=== PATIENT | male | born 1980 | race Caucasian/White ===

== ENCOUNTER 2019-01-12 09:05 | Emergency (ER) | payer MEDICAID, SELFPAY ==
[2019-01-12 09:09] VITALS: BP 152/91; PULSE 70; RESP 18; TEMP 36.6; O2SAT 97
--- NOTE | 2019-01-12 09:52 | W.ED.GENAD ---
Discharge Plan Disposition Patient Disposition: HOME Discharge Details Chief Complaint: Nk/Back Pain Clinical Impression: Acute right-sided low back pain Primary Care Provider: None,None ED Provider: Declan Haines Home Meds and New Rx's Prescriptions: New lidocaine 5 % adhesive patch,medicated 1 patch TP DAILY Qty: 15 RF: 0 Discharge Instructions Instructions: Acute Low Back Pain (ED) Additional Instructions: Avoid all activities that worsen pain. Please take ibuprofen over the counter. Take 600mg by mouth every 6 hours as needed for pain. Please take acetaminophen (tylenol) - 650mg every 6 hours by mouth as needed for pain. Please contact your primary care physician to arrange follow-up. Return to the ER for any worsening or new concerning symptoms including worsening pain, worsening numbness, weakness, bowel or bladder dysfunction. Referrals: Morgan Solis MD [ [facility] STAFF PHYSICIAN] - Medical Decision Making 38-year-old male here with right low back pain radiating into right buttock and hip with paresthesias of the right anterior lower leg over L4 distribution. Tender palpation right lower lumbar paraspinal. Suspect disc herniation and nerve root compression versus lumbar paraspinal spasm. Plan to treat with ibuprofen, Tylenol and lidocaine patch and have him follow-up with his primary care physician. Usual and customary discharge instructions were provided. Patient understands importance of timely follow-up and that he should return immediately for any worsening or new concerning symptoms. HPI General Mode of arrival: ambulatory. Date/Time Provider Initiated Documentation: 01/12/19 09:13. Limitations to Documentation: no limitations. Information obtained by: patient. HPI Narrative: 38-year-old male presents with chief complaint of back pain. Patient notes right low back pain that started 2 days ago and has persisted. Patient does not recall any specific trauma. He notes he has been working on a roof and deck recently and doing heavy lifting. Pain is described as a soreness and localized to his right low back and radiates into his right hip and also some discomfort and paresthesias right anterior cassidy. Pain is worse with prolonged standing. No associated weakness. No bowel or bladder dysfunction. No fever or chills. No rash. Related Data Home Medications Medication Instructions Recorded Confirmed lidocaine 1 patch TP DAILY #15 each 01/12/19 Previous Rx's Medication Instructions Recorded lidocaine 1 patch TP DAILY #15 each 01/12/19 Allergies Allergy/AdvReac Type Severity Reaction Status Date / Time carrot Allergy Mild Itching Unverified 01/12/19 09:22 General Stated Complaint: Nk/Back Pain LEXY: 3 Review of Systems Constitutional Denies fever(s) Gastrointestinal Denies abdominal pain Genitourinary Reports as per HPI Musculoskeletal Reports as per HPI Integumentary/Breasts Reports as per HPI [facility] Social History Smoking/Tobacco Use Status: Former Tobacco Use Alcohol Intake: current Alcohol Intake frequency: a few times a week Alcohol type: beer Drug use: Never Substance use type: former substance user and marijuana Do you feel safe at home: Yes Do you feel safe in your relationship?: Yes Exam Const General: cooperative and no acute distress HENMT Mouth: moist mucous membranes Eyes Conjunctivae: normal conjunctivae Sclera: normal sclerae Neck Neck: supple Resp Auscultation: clear to auscultation bilaterally, no rales, no rhonchi and no wheezes Cardio Rate: regular rate Rhythm: regular rhythm Back/Spine/Pelvis Back: No erythema and No warmth Thoracic/Lumbar Spine: paraspinal tenderness (Low lumbar on right), No thoracic spinal tenderness and No lumbar spinal tenderness Pelvis: no pain with lateral compression Skin General skin exam: no rashes or lesions noted Neuro General: alert, awake, oriented x3 and tone normal Cognition: normal cognition Speech: speech normal Sensory Exam: lower extremity (paresthesia tingling right anterior lower leg over L4 distribution) Extrem General: no edema Course Vital Signs Temperature 36.6 C 01/12/19 09:09 Pulse 70 01/12/19 09:09 Respiratory Rate 18 01/12/19 09:09 Blood Pressure 152/91 H 01/12/19 09:09 Pulse Oximetry 97 01/12/19 09:09 Temperature 36.6 C 01/12/19 09:09 Temperature Source Temporal Artery Scan 01/12/19 09:09 Pulse 70 01/12/19 09:09 Respiratory Rate 18 01/12/19 09:09 Respiratory Effort Non-Labored 01/12/19 09:15 Blood Pressure 152/91 H 01/12/19 09:09 Blood Pressure Position Sitting 01/12/19 09:09 Pulse Oximetry 97 01/12/19 09:09 Oxygen Delivery Method Room Air 01/12/19 09:09 Oxygen Flow Rate 0 01/12/19 09:09 Pain Level 3 01/12/19 09:09
[2019-01-12] MEDS: Lidocaine 5% Patch 1 PATCH TP (10:04)
[2019-01-12] MEDS: Acetaminophen 325 MG TAB 650 MG PO (10:05)
[2019-01-12] MEDS: Ibuprofen 600 MG TAB PO (10:05)
[2019-01-12 10:18] VITALS: BP 152/91; PULSE 70; RESP 18; TEMP 36.6; O2SAT 97
== END 2019-01-12 10:17 | disposition home or self-care (01) ==
PROVIDERS: Emergency Provider Student in an Organized Health Care Education/Training Program; PCP Internal Medicine
DX: M54.5 Low back pain (principal); R20.2 Paresthesia of skin
CPT/HCPCS: 99282

== ENCOUNTER 2019-02-11 15:48 | Outpatient (REF) | payer MEDICAID, SELFPAY ==
[2019-02-11 21:33] LABS: ALT 73 U/L (16-63); AST 34 U/L (15-37); Anion Gap 10.6 mmol/L (3-11); BUN 17 mg/dL (7-18); CO2 27.4 mmol/L (21.0-32.0); CREATININE 1.14 mg/dL (0.70-1.30); Calcium 9.2 mg/dL (8.5-10.1); Calculated LDL 129 mg/dL; Chloride 102 mmol/L (98-107); Cholesterol 207 mg/dL (50-200); Glucose 124 mg/dL (70-100); HDL Cholesterol 39 mg/dL (40-60); Potassium 4.2 mmol/L (3.5-5.1); Sodium 140 mmol/L (136-145); Triglyceride 199 mg/dL (30-150)
== END 2019-02-11 16:08 ==
LOC: NCHCN 15:48
PROVIDERS: PCP Internal Medicine; Visit Provider Nurse Practitioner Family
DX: I10 Essential (primary) hypertension (principal); Z00.00 Encounter for general adult medical examination without abnormal findings
CPT/HCPCS: 80048; 80061; 84450; 84460

== ENCOUNTER 2020-10-22 12:56 | Emergency (ER) | payer MEDICAID, SELFPAY ==
[2020-10-22 13:00] VITALS: BP 139/90; PULSE 73; RESP 16; TEMP 36.9; O2SAT 98
--- NOTE | 2020-10-22 13:12 | W.ED.GENAD ---
Discharge Plan Disposition Patient Disposition: HOME Condition: Improving Discharge Details Clinical Impression: Left lateral knee pain Primary Care Provider: Morgan Solis ED Provider: Joe Rayo Home Meds and New Rx's Prescriptions: Continued lidocaine 5 % adhesive patch,medicated 1 patch TP DAILY Qty: 15 RF: 0 lisinopril 20 mg tablet 20 mg PO DAILY RF: 0 Discharge Instructions Instructions: Knee Pain (ED) Additional Instructions: Please wear the hinged knee brace while awake and out of bed. May apply ice to area to reduce pain and swelling. Please use crutches until you can begin to weight-bear without discomfort. You will be weightbearing as tolerated. You have been referred to orthopedic clinic for follow-up. Please call the office at [phone] on Sunday for an appointment time. Return to the ER for worsening pain, the development of cold/blue/numbness of the toes, or any other acute concerns. Medical Decision Making 39-year-old male presents complaining of left knee pain. 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 Able to weight-bear but with pain. Denies other injury. On exam he is tender at the lateral joint line, most particularly over the bony prominence. Ice placed, patient declined analgesia, referred for x-ray. No bony injury appreciated. Concern for lateral joint line persistent tenderness, cannot rule out occult bony injury or soft tissue injury. Will place in hinged knee brace, weightbearing as tolerated, will refer to orthopedics for recheck. Patient understands homecare and return precautions. HPI General Mode of arrival: ambulatory. Date/Time Provider Initiated Documentation: 10/22/20 13:01. Limitations to Documentation: no limitations. Information obtained by: patient. History of Present Illness 39 year old M presents to the emergency department with the chief complaint of Left knee pain after axial load, Quality is described as dull and constant, and is localized to the left and lower extremity. Patient reports no radiation. Patient started experiencing this minute(s) and it has been constant. Rest improves symptom(s), Movement worsens symptoms and Other factors that worsen symptoms . Patient notes no other symptoms.. Patient did receive the following treatments prior to arrival, cold therapy Related Data Home Medications Medication Instructions Recorded Confirmed lidocaine 1 patch TP DAILY #15 each 01/12/19 lisinopril 20 mg PO DAILY 10/22/20 10/22/20 Previous Rx's Medication Instructions Recorded lidocaine 1 patch TP DAILY #15 each 01/12/19 Allergies Allergy/AdvReac Type Severity Reaction Status Date / Time carrot Allergy Mild Itching Unverified 10/22/20 13:05 General Stated Complaint: Orthopedic LEXY: 3 Review of Systems Narrative: No other injury. Denies any recent fever or illness. 6 systems reviewed and otherwise negative. [facility] Social History Smoking/Tobacco Use Status: Never Smoking risk assessment performed?: Yes Alcohol Intake: current Alcohol Intake frequency: a few times a week Alcohol type: beer Drug use: Never Substance use type: former substance user and marijuana Do you feel safe at home: Yes Do you feel safe in your relationship?: Yes Exam Narrative Exam Narrative: GEN: awake, alert, oriented 3. Pleasant, well groomed, interactive. HEAD: Normocephalic, atraumatic NECK: Full ROM, no JOSEFINA, no menigismus CHEST/RESP: Nontender EXT: Full ROM, left lateral knee, abdomen lateral joint line is tender over the bony prominence. No laxity appreciated. Motor strength is 5 out of 5. Distal sensation normal. Neuro: Grossly normal neurologic exam, conversant, interactive. Psych: Speech fluent, thoughts congruent, affect normal Course Vital Signs Vital signs: Vital Signs Temperature 36.9 C 10/22/20 13:00 Pulse 73 10/22/20 13:00 Respiratory Rate 16 10/22/20 13:00 Blood Pressure 139/90 10/22/20 13:00 Pulse Oximetry 98 10/22/20 13:00 Temperature 36.9 C 10/22/20 13:00 Temperature Source Skin 10/22/20 13:00 Pulse 73 10/22/20 13:00 Respiratory Rate 16 10/22/20 13:00 Respiratory Effort Non-Labored 10/22/20 13:00 Blood Pressure 139/90 10/22/20 13:00 Blood Pressure Position Sitting 10/22/20 13:00 Pulse Oximetry 98 10/22/20 13:00 Oxygen Delivery Method Room Air 10/22/20 13:00 Oxygen Flow Rate 0 10/22/20 13:00 Pain Level 3 10/22/20 13:00
--- NOTE | 2020-10-22 13:41 | DI.RAD_ITS ---
Exam(s) XR KNEE LT 3V AP,LAT,SUSHMA EXAM: XR KNEE LT 3V AP,LAT,SUSHMA CLINICAL HISTORY: lateral pain after axial load. TECHNIQUE: 2D digital imaging was performed. COMPARISON: No exams were available for comparison FINDINGS: BONES: No acute fracture is present. No bony destructive lesion is seen. JOINTS: The knee is normally aligned. No joint effusion is seen. SOFT TISSUE: Normal. IMPRESSION: Normal radiographs of the left knee. DATA REPOSITORY: RADIATION DOSE DELIVERED:
--- NOTE | 2020-10-22 14:05 | ANES.PREOP_ITS ---
General Info Date of Service Date Performed: 10/22/20 Height: 5 ft 9 in Weight: 81.647 kg Body Mass Index (BMI): 26.6 Meds Allergies and Home Medications Allergies Allergy/AdvReac Type Severity Reaction Status Date / Time carrot Allergy Mild Itching Unverified 10/22/20 13:05 Home Medication Medication Instructions Recorded lidocaine 1 patch TP DAILY #15 each 01/12/19 lisinopril 20 mg PO DAILY 10/22/20 [facility] Tobacco Smoking/Tobacco Use Status: Never Alcohol Alcohol Intake: current Alcohol intake frequency: a few times a week Alcohol type: beer Substance Use Substance use: Never Substance use type: former substance user and marijuana Vital Signs and Lab Results Vital Signs Most Recent Vital Signs in EMR: Most Recent Vital Signs Temp Pulse Resp BP Pulse Ox 36.9 C 73 16 139/90 98 10/22/20 13:00 10/22/20 13:00 10/22/20 13:00 10/22/20 13:00 10/22/20 13:00 Lab Results Blood Type / Crossmatch: No Data to Display Complete Blood Count: No Data to Display Complete Metabolic Panel: No Data to Display Liver Function Panel: No Data to Display Coagulation Panel: No Data to Display Cardiac Panel: No Data to Display Arterial Blood Gas: No Data to Display Venous Blood Gas: No Data to Display Pancreas Panel: No Data to Display Thyroid Panel: No Data to Display Infectious Disease: No Data to Display Blood Cultures: No Data to Display Toxicology Panel: No Data to Display
== END 2020-10-22 14:39 | disposition home or self-care (01) ==
PROVIDERS: Emergency Provider Emergency Medicine; PCP Internal Medicine
DX: M25.562 Pain in left knee (principal)
CPT/HCPCS: 29505; 73562; 99283; J2001

== ENCOUNTER 2020-12-28 09:10 | Outpatient (CLI) | payer MEDICAID, SELFPAY ==
--- NOTE | 2020-12-28 08:30 | DI.RAD_ITS ---
Exam(s) XR KNEE LT 1V EXAM: XR KNEE LT 1V CLINICAL HISTORY: left lateral knee pain TECHNIQUE: COMPARISON: CR XR KNEE LT 3V AP,LAT,SUSHMA from 10/22/2020 FINDINGS: Single Merchant view was obtained. Cartilaginous joint space of patellofemoral joint appears intact. There appears to be normal alignment of the patella with the femoral trochlea. IMPRESSION: RADIATION DOSE DELIVERED: Total DLP
== END 2020-12-28 09:11 | disposition home or self-care (01) ==
LOC: DIORS 09:11
PROVIDERS: PCP Internal Medicine; Referring Provider Internal Medicine; Visit Provider Physician Assistant
DX: M25.562 Pain in left knee (principal)
CPT/HCPCS: 73560

== ENCOUNTER 2021-01-21 04:01 | Outpatient (CLI) | payer MEDICAID, SELFPAY ==
--- NOTE | 2021-01-21 07:30 | DI.MRI_ITS ---
Exam(s) MR LOWER JOINT LT WO EXAM: MR LOWER JOINT LT WO CLINICAL HISTORY: KNEE PAIN R/O MENISCUS TEAR, CONTUSION, FB SOFT TISSUE, T14.8XXA, M79.5. TECHNIQUE: Multiplanar multisequence MRI was performed. COMPARISON: CR XR KNEE LT 3V AP,LAT,SUSHMA from 10/22/2020 CR XR KNEE LT 3V AP,LAT,SUSHMA from 10/22/2020 CR XR KNEE LT 1V from 12/28/2020 FINDINGS: BONES: There is no fracture or contusion pattern. JOINTS: Articular cartilage is unremarkable. Moderate-sized joint effusion. Effusion is present. TENDONS: Extensor mechanism: Unremarkable. Medial retinaculum: Unremarkable. Lateral retinaculum: Unremarkable. Popliteus: Surrounding fluid but unremarkable. MUSCLES: Unremarkable. MENISCI: The medial meniscus is unremarkable. The lateral meniscus shows disruption at the meniscal root. SOFT TISSUES: Moderate quantity of fluid in prevertebral patellar bursa. LIGAMENTS: Anterior Cruciate: Complete tear proximal to mid portion. Posterior Cruciate: Unremarkable. Medial Collateral:Unremarkable. Lateral Collateral: Unremarkable. OTHER: IMPRESSION: Anterior cruciate ligament tear. Disruption of the lateral meniscus at the meniscal root. Moderate joint effusion. Prepatellar bursitis. DATA REPOSITORY:
== END 2021-01-21 04:21 ==
PROVIDERS: PCP Internal Medicine; Visit Provider Student in an Organized Health Care Education/Training Program
DX: M79.5 Residual foreign body in soft tissue (principal); T14.8XXA Other injury of unspecified body region, initial encounter; S83.512A Sprain of anterior cruciate ligament of left knee, initial encounter; M25.462 Effusion, left knee; M70.42 Prepatellar bursitis, left knee; S83.195A Other dislocation of left knee, initial encounter
CPT/HCPCS: 73721

== ENCOUNTER 2021-02-01 01:22 | Outpatient (CLI) | payer MEDICAID, SELFPAY ==
[2021-02-01 11:57] LABS: Source Nasal/Nares
[2021-02-01 14:24] LABS: COVID-19 PCR Negative (Negative)
== END 2021-02-01 01:23 | disposition home or self-care (01) ==
LOC: LBO 01:23
PROVIDERS: PCP Internal Medicine; Visit Provider Student in an Organized Health Care Education/Training Program
DX: Z20.822 Contact with and (suspected) exposure to COVID-19 (principal); Z01.818 Encounter for other preprocedural examination
CPT/HCPCS: 87635

== ENCOUNTER 2021-02-03 08:14 | Day surgery (SDC) | payer MEDICAID, SELFPAY ==
[2021-02-03] VITALS (7 sets, daily range): BP systolic 116–139; BP diastolic 74–93; PULSE 61–82; RESP 14–29; TEMP 36.3–36.8; O2SAT 94–100; BMI 26.2
[2021-02-03] MEDS: Lactated Ringers 1,000 ML 100 ML IV (07:52)
--- NOTE | 2021-02-03 09:16 | ANES.PREOP_ITS ---
General Info Date of Service Date Performed: 02/03/21 Height: 5 ft 9 in Weight: 80.5 kg Body Mass Index (BMI): 26.2 Surgical Procedure: Operation Date: 02/03/21 11:40 Proposed Procedures Side Surgeon p KNEE ARTHROSCOPY WITH ACL REPAIR VS RECONSTRUCTION (ALLOGRAFT)POSSIBLE LATERAL MENISCAL ROOT REPAIR, and any other indicated meniscal, chondral or synovial bustos rgery Left Oumar Castillo MD Meds Allergies and Home Medications Allergies Allergy/AdvReac Type Severity Reaction Status Date / Time pollen extracts Allergy Intermediate Verified 02/03/21 07:29 carrot Allergy Mild Itching Unverified 02/03/21 07:29 Home Medication Medication Instructions Recorded lisinopril 20 mg PO DAILY 10/22/20 Current Visit Medications: Current Medications Generic Name Dose Route Start Last Admin Trade Name Freq PRN Reason Stop Dose Admin Ringer's Solution 1,000 mls @ 100 mls/hr 02/03/21 06:00 02/03/21 07:52 IV 03/04/21 23:59 100 mls/hr INFUSION CARISSA Administration Cefazolin Sodium 2,000 mg/ 100 mls @ 200 mls/hr 02/03/21 06:00 Sodium Chloride IVPB 02/03/21 16:00 PREOP CARISSA IV Miscellaneous Supplies 1 each 02/03/21 06:00 Iv Access IV 03/04/21 23:59 DIRECTED CARISSA Naproxen 250 - 500 mg 02/03/21 06:56 Naproxen 500 Mg Tab PO BID PRN PRN Oxycodone HCl 5 - 10 mg 02/03/21 06:56 Oxycodone 5 Mg Tab PO Q4H PRN PRN Sodium Chloride 0 ml 02/03/21 06:00 Normal Saline Flush 10 Ml Syr IV 03/04/21 23:59 PRN PRN Sodium Chloride 0 ml 02/03/21 06:00 Normal Saline 10 Ml Vial IJ 03/04/21 23:59 DIRECTED PRN Sterile Water 0 ml 02/03/21 06:00 Water,Injection,Sterile 10 Ml Vial IJ 03/04/21 23:59 DIRECTED PRN PFSH Active Problems Active Problems: Problem Status Onset Code Foreign body (FB) in soft tissue M79.5 Tear of lateral meniscus of left knee 10/22/20 S83.282A Left ACL tear 10/22/20 S83.512A Prepatellar bursitis, left knee M70.42 Medical History Medical History HTN (hypertension) Tobacco Smoking/Tobacco Use Status: Former Tobacco Use Alcohol Alcohol Intake: current Alcohol intake frequency: a few times a week Alcohol type: beer and other Substance Use Substance use: Daily Substance use type: marijuana Vital Signs and Lab Results Vital Signs Most Recent Vital Signs in EMR: Most Recent Vital Signs Temp Pulse Resp BP Pulse Ox 36.5 C 76 16 139/93 H 100 02/03/21 07:08 02/03/21 07:08 02/03/21 07:08 02/03/21 07:08 02/03/21 07:08 Lab Results Blood Type / Crossmatch: No Data to Display Complete Blood Count: No Data to Display Complete Metabolic Panel: No Data to Display Liver Function Panel: No Data to Display Coagulation Panel: No Data to Display Cardiac Panel: No Data to Display Arterial Blood Gas: No Data to Display Venous Blood Gas: No Data to Display Pancreas Panel: No Data to Display Thyroid Panel: No Data to Display Infectious Disease: Coronavirus (COVID-19)(PCR) Negative (Negative) 02/01/21 11:00 02/01/21 Coronavirus 2019 Source Nasal/Nares 02/01/21 11:00 02/01/21 Blood Cultures: No Data to Display Toxicology Panel: No Data to Display Anesthesia Assessment and Plan Anesthesia History Personal History: No History of Anesthesia Complications Family History: No Family History of Anesthesia Complications Exercise Tolerance Exercise Tolerance: Metabolic Equivalents>4 Cardiac & Pulmonary Exam Cardiac Exam: Normal S1/S2 Heart Sounds Pulmonary Exam: Clear Bilateral Breath Sounds Airway Exam Known Difficult Airway: No Mallampati Class: 1 Mouth Opening: Normal (> 3cm) Thyromental Distance: Greater than 3 cm Neck Range of Motion: Full ROM Neck Circumference: Normal Teeth Condition: Normal Dentition ASA Classification ASA Score: ASA 2 Emergency Case?: No NPO Status NPO Status: NPO Clears >2 hours, Solids >8 hours Anesthesia Plan Resuscitation Status: Full Code Anesthesia Technique: General Anesthesia Airway Planned: LMA Pain Management: Surgeon and patient request nerve block Monitors Used: Standard Monitors Preoperative Comments:: 40 yo male for ACL repair. Sig PMHx: HTN (lisinopril), former smoker, daily cannabis. Plan GA/LMA, fem nerve block.
--- NOTE | 2021-02-03 11:14 | W.ANESNERVE ---
Nerve Block Single Injection Procedure Date and Time Date Performed: 02/03/21 Procedure Start: 11:01 Location Where Procedure Performed Procedure Location: PACU Reason Performed: Postoperative Analgesia Requesting Provider: Oumar Castillo Timeout Performed Timeout Performed: Yes Monitoring Used ECG, Blood Pressure, SpO2 and See EMR for corresponding vital signs Sterility Sterility: Hand Hygiene, Surgical Cap, Surgical Mask, Sterile Gloves and Chlorhexidine Sedation Given During Procedure Sedation Given (Indicate Dose Given): Versed IV Dose:: 5 mg Patient Mental Status Patient Mental Status: Sedate with meaningful communication Nerve Block 1st Nerve Block: Laterality: Left Block Type: Femoral Needle / Catheter Used: 100mm SonoPlex II Local Anesthetic Bolus (Indicate Dose Given): Lidocaine used for local infiltration of skin, Injected in 3-5ml increments after negative blood aspiration, Bupivacaine 0.5% Dose:: 10 ml and Exparel Dose:: 10 ml Additives (Indicate Dose Given): None Ultrasound: Sterile probe cover and gel used Ultrasound Image Saved?: Yes Nerve Stimulator: Not Used Paresthesia: None Procedure Tolerated: No Complications and Patient tolerated well Procedure Outcome: Successful Performed By: Yousuf Merrill Supervised By: Bart Bender
[2021-02-03] MEDS: ceFAZolin 2,000 MG in Normal Saline 100 ML 200 MG IVPB (11:45)
[2021-02-03] MEDS: fentaNYL 100 MCG/2 ML VIAL IVP ×2 (15:50→15:59)
--- NOTE | 2021-02-03 15:52 | W.ANESPOSTOP ---
Postoperative Evaluation Date, Time and Location Date Performed: 02/03/21 Time Performed: 15:52 Patient Location: PACU Vital Signs Most Recent Imported Vital Signs: Most Recent Vital Signs Temp Pulse Resp BP Pulse Ox 36.7 C 82 22 135/84 94 02/03/21 15:45 02/03/21 15:45 02/03/21 15:45 02/03/21 15:45 02/03/21 15:45 Pain Score Most Recent Pain Score: Most Recent Pain Score Pain Level 6 02/03/21 15:45 Assessment Mental Status: Awake (Alert & Oriented to Patient Baseline) Airway and Respiratory Function: Patent airway with normal (patient baseline) respiratory exam Cardiovascular Function: Hemodynamically Stable Hydration Status: Adequately Hydrated Nausea & Vomiting: No Nausea or Vomiting Pain: Pain is tolerable per patient Peripheral Nerve Block: Regional nerve block not resolved at time of post operative discharge
--- NOTE | 2021-02-03 16:25 | W.PM.DSUDISC ---
Discharge Plan Disposition Patient Disposition: HOME Condition: Stable Discharge Details Reason For Visit: Left knee surgery Attending Provider: Oumar Castillo Primary Care Provider: Morgan Solis Home Meds and New Rx's Prescriptions: New aspirin 81 mg tablet,delayed release (DR/EC) 81 mg PO BID 30 Days Qty: 60 RF: 0 naproxen 250 mg tablet 250 - 500 mg PO BID PRN (Reason: Moderate pain or swelling) Qty: 60 RF: 0 oxycodone 5 mg tablet 5 - 10 mg PO Q4H PRN (Reason: moderate to severe pain) Qty: 22 RF: 0 Continued lisinopril 20 mg tablet 20 mg PO DAILY RF: 0 Discharge Instructions Additional Instructions: Surgery: Left knee ACL repair with internal brace and lateral meniscal root and posterior horn repairs. Activity: Non-weightbearing with crutches x6 weeks. Knee brace until quad control returns. Restore full extension as soon as possible. No flexion past 90 degrees x 6 weeks. No weighted deep flexion for 10 weeks. Isometric and gentle spin/bike okay after 6 weeks. Closed chain strengthening after 3 months. Prescriptions: Aspirin 81 mg take 1 daily to prevent a blood clot for 30 days Naproxen 250 mg take 1-2 every 12 hours with a meal as needed for moderate pain Oxycodone 5 mg take 1-2 every 4-6 hours as needed for severe pain You may use [id number] Tylenol (acetaminophen) as needed for mild pain. These pain medications may be taken all at once or in different combinations as needed. Also, recommend Colace (docusate) as a stool softener as surgery and pain medicine cause constipation. Dressings: Leave dressing in place until follow-up. May loosen or adjust knee brace and albert bandage as needed for swelling and comfort. Please keep clean and dry. Follow-up: 10-[address] Castillo Let us know right away if you develop any redness, drainage, fevers, chest pain, or trouble breathing. Do not drink alcohol or drive for at least 24 hours after anesthesia. Please call the office during business hours with any questions or concerns. Referrals: Oumar Castillo MD [ [facility] STAFF PHYSICIAN] - Discharge Orders Discharge Orders: Discharge Order (Routine); Ordered 02/03/21 Ordered By: Oumar Castillo DS: Diagnosis Discharge Diagnosis (1) Foreign body (FB) in soft tissue: Status: Acute (2) Tear of lateral meniscus of left knee: Status: Acute (3) Left ACL tear: Status: Acute
[2021-02-03] MEDS: oxyCODONE 5 MG TAB PO (16:28)
--- NOTE | 2021-02-03 16:50 | ROE_ITS ---
Date of service: 02/03/21 Time of Service: 12:00 Operative Note Operative Note DATE OF PROCEDURE: 02/03/21 PRE-OP DIAGNOSIS: Left knee 1. ACL tear 2. Lateral meniscus tear POST-OP DIAGNOSIS: same PROCEDURE: Left knee 1. Lateral meniscal root and posterior horn repairs, CPT #66106 2. ACL repair, CPT #46771 SURGEON: Oumar Castillo SOLUTIONS OPERATOR: Flavia Saavedra ANESTHESIA TYPE: Local By Surgeon, General LMA/ETT and Primary Nerve Block Refer to Anesthesia Record ESTIMATED BLOOD LOSS: 20 PATHOLOGY: none sent TOURNIQUET TIME: 0 COMPLICATIONS: None Patient was transported to: PACU Patient's condition: stable Implants: Arthrex bio composite swivel lock 4.75 mm x2 and knotless 4.74 mm x1; fiber stitch meniscus repair implant x2 Indications: Please see complete medical record for details. Findings: Exam under anesthesia: Moderate increased in laxity without firm endpoint but not grossly unstable Marcos testing. Negative anterior drawer. Negative pivot shift and glide. Mild residual prepatellar bursitis. Full range of motion. Stable varus valgus stress Arthroscopic findings: Single bundle proximal ACL avulsion with completely intact anterior medial bundle and completely torn from proximal attachment posterior lateral bundle flipped anteriorly and split into 2 longitudinal segments. Intact ligamentum mucosum. Intact intrameniscal ligament. Intact medial and patellofemoral compartments. Posterior horn lateral meniscus white and white-red zone superior leaflet radial into parrot-beak tear starting a few millimeters off complete tear with remnant root and traveling into the center of the posterior horn body ending past the popliteus. Intact lateral meniscus body and anterior horn. Procedure Description: In the operating room, genral anesthesia was induced. The patient was positioned supine on the operating room table. All bony prominences were well-padded. Preoperative antibiotics were administered. The knee was prepped and draped in the usual sterile fashion. The correct patient, procedure, and side of the procedure were all verified prior to incision. Exam under anesthesia was performed. 20 cc of 0.25% bupivacaine containing epinephrine was infiltrated about the planned anteromedial and anterolateral knee arthroscopy portals as well as the planned anterior tibia and lateral distal femur possible ACL working sites. The portals were established and a complete diagnostic arthroscopy was performed with relevant findings detailed above. Passport cannulas were inserted in the high and tight anteromedial anterolateral borders and the remnant ACL tissue was probed and inspected and found to have adequate tissue quality and excellent excursion and opposition with reduction to PL footprint in the intercondylar area on the lateral femoral condyle. The shaver was used to complete a small notchplasty improving visualization laterally as well as exposing subchondral bleeding bone to optimize healing for planned ACL and meniscus repairs. The PL bundle origin was not decorticated to maintain strong bone for fixation. The knee was positioned [id number] and attention was turned to the posterior horn lateral meniscus repair. The radial aspect of the tear in the posterior horn had somewhat frayed tissue so this was debrided as opposed to attempting a side to side and root repair. This left a residual lateral meniscus stump that was lightly abraded to allow for visualization placement of the adjustable root guide just anterior and lateral to the root. A knife was used to make a small longitudinal incision centrally and distally on the anterior tibia with soft tissue cleared and the drill guide inserted down to bone. The flip cutter was carefully guided into the correct location of the lateral meniscus root, flipped to 6 mm, and the root origin decorticated making only minimal socket but optimizing healing. A fiber stick was inserted and the tails secured. The knee scorpion was then brought in and used to pass a 0 fiber link in cinch mode in the posterior horn intact tissue and this was repeated more medially and posteriorly. These repair sutures were shuttled through the bone tunnel and demonstrated excellent fixation strength and apposition of the posterior horn to the root attachment area. A centimeter distally on the anterior tibia the SwiveLock drill for hard bone was used followed by the tap. Both repair sutures were loaded to a swivel lock anchor and appropriate tension placed on the repair under direct visualization and the suture anchor secured to bone. The residual part of the radial into superior leaflet parrot-beak type tear was probed. It was debrided to a stable margin leaving a significant amount of good quality tissue that was not attached to the intact posterior horn so the decision was made to continue repair using an all inside technique the center part of the parrot-beak tear was secured with a all suture implant device in a vertical mattress configuration and then the edge of the tear to the intact posterior horn was secured with an additional repair device. The repair was probed and found to have excellent strength through the root and this posterior horn part of repair. Minor meniscal fraying was debrided to optimize stable margin. Attention was then turned back to the intercondylar area. The knee was positioned about 90 degrees of flexion. The labral scorpion was used to securely place suture tape FiberLink in both parts of the single bundle avulsion tissue exiting near the ligament origin. Provisional traction on these repair stitches securely reduced this bundle to the femur. Trajectory was optimized with an additional lower anterior medial portal and the passport removed to this location. The SwiveLock punch and then tapped was then used after carefully localizing the appropriate site for repair followed by secure fixation with a knotless swivel lock containing a fiber tape for internal brace and both repair sutures. The PL bundle was well reduced and opposed to to bone and positioned nicely distal to the intact AL bundle. The knotless repair stitch from this anchor was then brought over the top of the repaired ligament using the labral scorpion and then passed back through the anchor using the knotless mechanism adding additional fixation and compression of ligament to the repair site. The pointed tibia guide was then positioned centrally in the tibial attachment of this PL bundle. Another small longitudinal incision was made more medially and proximally on the tibia and soft tissue cleared down to bone. The flip cutter was then used and appropriately drilled actually exiting in the center of this PL bundle. Care was made to avoid injuring the already completed repair. The f iber stick was then passed in to the knee and retrieved with the fiber tape stitches before struggling them out the tibial tunnel. The fiber tapes laid nicely over the repaired ligament. Tension was tested and there was impingement in full extension. The knee was then positioned in full extension on the back table and the hard bone drill followed by tap used to localize placement of an additional swivel lock anchor. Prior to final fixation of this fiber tape internal brace a small hemostat was placed to prevent undue tightening and stress shielding of the repair. The repair was inspected as well as this small amount of play in the internal brace and found to be appropriate prior to final secure fixation of the suture anchor. The repair was again probed and found to demonstrate excellent strength and appropriate isometry. The knee was copiously irrigated with arthroscopic fluid until there was a clear effluent before being drained of all fluid. Marcos tested demonstrated excell ent, greatly improved stability and minimal translation symmetrical to contralateral side. The anteromedial and anterolateral portals were closed in 3-0 Monocryl in a buried interrupted fashion. The anterior tibia incisions were closed using 2-0 Monocryl for subcutaneous tissue followed by 3-0 Monocryl in a buried running fashion for the skin. Steri-Strips, and 4 x 4 gauze were applied over the incisions followed by sterile soft roll. The knee was then wrapped gently with an TONI comressive bandage. A long-leg knee immobilizer was then applied. The patient awoke from anesthesia without complication and was transferred to the recovery room in a stable condition.
== END 2021-02-03 17:18 | disposition home or self-care (01) ==
LOC: SUR 08:15
PROVIDERS: PCP Internal Medicine; Visit Provider Student in an Organized Health Care Education/Training Program
PROC: (CPT 29888; principal; 2021-02-03 11:30)
DX: S83.272A Complex tear of lateral meniscus, current injury, left knee, initial encounter (principal); S83.512A Sprain of anterior cruciate ligament of left knee, initial encounter; X58.XXXA Exposure to other specified factors, initial encounter
CPT/HCPCS: 29882; 29888; J0690; J1100; J1885; J2001; J2250; J2405; J3010

== ENCOUNTER 2021-02-16 13:04 | Emergency (ER) | payer MEDICAID, SELFPAY ==
[2021-02-16 13:09] VITALS: BP 121/82; PULSE 79; RESP 14; TEMP 36.3; O2SAT 98
--- NOTE | 2021-02-16 13:15 | DI.RAD_ITS ---
Exam(s) XR HIP RT COMPLETE AP PELVIS EXAM: XR HIP RT COMPLETE AP PELVIS CLINICAL HISTORY: R lateral pain after movement. TECHNIQUE: 2D digital imaging was performed of the right hip. Two images were obtained. AP pelvis a nd lateral right hip views were obtained. COMPARISON: No exams were available for comparison FINDINGS: BONES: No acute fracture is present. No bony destructive lesion is seen. JOINTS: No dislocation present. SOFT TISSUE: Normal. IMPRESSION: Unremarkable radiographs of the right hip. Unremarkable radiographs of the pelvis. DATA REPOSITORY: RADIATION DOSE DELIVERED:
--- NOTE | 2021-02-16 13:30 | ED.GENADUL_ITS ---
Discharge Plan Disposition Patient Disposition: HOME Condition: Improving Discharge Details Clinical Impression: Lateral pain of right hip Primary Care Provider: Morgan Solis ED Provider: Joe Rayo Home Meds and New Rx's Prescriptions: Continued aspirin 81 mg tablet,delayed release (DR/EC) 81 mg PO BID 30 Days Qty: 60 RF: 0 naproxen 250 mg tablet 250 - 500 mg PO BID PRN (Reason: Moderate pain or swelling) Qty: 60 RF: 0 lisinopril 20 mg tablet 20 mg PO DAILY RF: 0 Discharge Instructions Instructions: Leg Pain (ED) Additional Instructions: I discussed your case with Dr. Castillo. He will ask physical therapy to evaluate your right hip tomorrow when you see them for your left knee rehabilitation. Dr. Castillo states that you may weight-bear with the left leg and therefore may use crutches with partial weightbearing as needed. Continue your routine medications. Ice to areas to reduce discomfort. Return to the ER for any acute concerns. Medical Decision Making 40-year-old male presents from home. He I saw him recently for a left knee injury for which he had resultant meniscus and ACL repair on February 03. He had an uneventful postop visit today and has been nonweightbearing on that leg with crutches. After the orthopedic visit he was trying to push a heavy, bulky roll plastic vertically into his truck while weight bearing on his right leg. He felt his hip deviate laterally to the right and pop. Since that time he said pain in the right hip. On my exam he has full range of motion of the right leg including internal and external rotation of the hip. Pt referred for x-ray: No acute bony injury or dislocation. Patient is able stand at the bedside and weight-bear although with some pain. Discussed presentation with patient's orthopedist, Dr. Castillo. Patient is able to weight-bear both legs. Dr. Castillo will refer him to physical therapy for both the right hip and prestanding referral for the left knee. He is stable for discharge to home. HPI General Mode of arrival: wheelchair . Date/Time Provider Initiated Documentation: 02/16/21 13:05 . Limitations to Documentation: no limitations . Information obtained by: patient and family . History of Present Illness 40 year old M presents to the emergency department with the chief complaint of Right lateral hip pain, described as moderate, Quality is described as dull, and is localized to the right and lower extremity. Patient reports no radiation. Patient started experiencing this minute(s) and it has been now resolved. No relieving factors improve symptom(s), No exacerbating factors reported . Patient notes denies syncope and weakness. Patient did receive the following treatments prior to arrival, none Related Data Home Medications Medication Instructions Recorded Confirmed lisinopril 20 mg PO DAILY 10/22/20 02/16/21 aspirin 81 mg PO BID 30 Days #60 tab 02/03/21 02/16/21 naproxen 250 - 500 mg PO BID PRN #60 tab 02/03/21 02/16/21 Previous Rx's Medication Instructions Recorded aspirin 81 mg PO BID 30 Days #60 tab 02/03/21 naproxen 250 - 500 mg PO BID PRN #60 tab 02/03/21 Allergies Allergy/AdvReac Type Severity Reaction Status Date / Time pollen extracts Allergy Intermediate Verified 02/16/21 13:14 carrot Allergy Mild Itching Unverified 02/16/21 13:14 General Stated Complaint: Orthopedic LEXY: 3 Review of Systems Narrative: No fall or injury. No loss of conscious. Left knee has been healing well and patient was seen in follow-up this morning. [facility] Medical History HTN (hypertension) Prepatellar bursitis, left knee Social History Smoking/Tobacco Use Status: Former Tobacco Use Smoking risk assessment performed?: Yes Alcohol Intake: current Alcohol Intake frequency: a few times a week Alcohol type: beer and other Drug use: Daily Substance use type: marijuana Current gender identity: male Do you feel safe at home: Yes Do you feel safe in your relationship?: Yes Exam Narrative Exam Narrative: GEN: awake, alert, oriented 3. Pleasant, well groomed, interactive. HEAD: Normocephalic, atraumatic ENT: Mucous membranes moist, oropharynx unremarkable, External ear exam unremarkable EYES: PERRL, EOMI ABDOMEN: Soft, nontender, no mass. EXT: Left knee in straight leg brace, no distal edema. Right leg freely mobile with no pain upon internal and external rotation of the hip. Motor graded 5 out of 5. Pain with palpation of the lateral right hip. Neuro: Grossly normal neurologic exam, conversant, interactive. Psych: Speech fluent, thoughts congruent, affect normal Course Vital Signs Vital signs: Vital Signs Temperature 36.3 C L 02/16/21 13:09 Pulse 79 02/16/21 13:09 Respiratory Rate 14 02/16/21 13:09 Blood Pressure 121/82 02/16/21 13:09 Pulse Oximetry 98 02/16/21 13:09 Temperature 36.3 C L 02/16/21 13:09 Temperature Source Skin 02/16/21 13:09 Pulse 79 02/16/21 13:09 Respiratory Rate 14 02/16/21 13:09 Respiratory Effort 02/16/21 13:14 Blood Pressure 121/82 02/16/21 13:09 Blood Pressure Position Sitting 02/16/21 13:09 Pulse Oximetry 98 02/16/21 13:09 Oxygen Delivery Method Room Air 02/16/21 13:09 Oxygen Flow Rate 0 02/16/21 13:09 Pain Level 1 02/16/21 13:09
== END 2021-02-16 14:50 | disposition home or self-care (01) ==
LOC: ER 14:27
PROVIDERS: Emergency Provider Emergency Medicine; PCP Internal Medicine
DX: M25.551 Pain in right hip (principal); X50.0XXA Overexertion from strenuous movement or load, initial encounter
CPT/HCPCS: 99283; 73502; 99282

== ENCOUNTER 2021-03-03 07:50 | Outpatient (REF) | payer MEDICAID, SELFPAY ==
[2021-03-03 23:19] LABS: ALT 40 U/L (16-63); AST 16 U/L (15-37); Anion Gap 11.4 mmol/L (3-11); BUN 17 mg/dL (7-18); CO2 28.6 mmol/L (21.0-32.0); CREATININE 1.1 mg/dL (0.70-1.30); Calcium 9.5 mg/dL (8.5-10.1); Chloride 102 mmol/L (98-107); Glucose 92 mg/dL (74-106); Potassium 4.5 mmol/L (3.5-5.1); Sodium 142 mmol/L (136-145)
== END 2021-03-03 07:51 | disposition home or self-care (01) ==
LOC: NCHCN 07:50
PROVIDERS: PCP Internal Medicine; Visit Provider Nurse Practitioner Family
DX: R74.8 Abnormal levels of other serum enzymes (principal); I10 Essential (primary) hypertension; E78.5 Hyperlipidemia, unspecified
CPT/HCPCS: 80048; 84450; 84460

== ENCOUNTER 2022-07-06 16:51 | Outpatient (REF) | payer MEDICAID, SELFPAY ==
[2022-07-06 21:07] LABS: HCT 40.4 % (40.0-50.0); HGB 13.7 g/dL (13.5-17.5); MCH 30.4 pg (27.0-33.0); MCHC 33.9 % (32.0-36.0); MCV 90 fL (80-95); MPV 11.1 fL (8.0-11.0); Platelet Count 234 10^3/uL (130-400); RBC 4.51 10^6/uL (4.36-5.78); RDW 12.3 % (11.8-14.1); RDW-SD 40.5 fL; WBC 8.15 10^3/uL (4.4-10.8)
[2022-07-06 21:21] LABS: ALT 28 U/L (16-63); AST 18 U/L (15-37); Albumin 4.6 g/dL (3.4-5.0); Alkaline Phosphatase 65 U/L (46-116); Anion Gap 6.4 mmol/L (3-11); BUN 16 mg/dL (7-18); Bilirubin, Total 0.5 mg/dL (0.2-1.0); CO2 27.6 mmol/L (21.0-32.0); Calcium 9.3 mg/dL (8.5-10.1); Chloride 103 mmol/L (98-107); Estimated GFR 96.37 (mL/min/1.73m2); Glucose 84 mg/dL (74-106); Potassium 3.9 mmol/L (3.5-5.1); Sodium 137 mmol/L (136-145); Total Protein 7.5 g/dL (6.4-8.2)
[2022-07-09 13:51] LABS: HIV-1/2 Ag & Ab Screen Negative (Negative)
[2022-07-10 10:36] LABS: Hepatitis C Ab w Rflx HCV PCR Negative (Negative)
[2023-01-03 21:24] LABS: Calculated LDL 98 mg/dL (<100); Cholesterol 158 mg/dL (<200); HDL Cholesterol 44 mg/dL (40-60); Triglyceride 80 mg/dL (<150)
[2023-01-03 21:51] LABS: Uric Acid 6.4 mg/dL (3.5-7.2)
== END 2022-07-06 16:52 | disposition home or self-care (01) ==
LOC: NCHCN 16:51
PROVIDERS: PCP Internal Medicine; Visit Provider Nurse Practitioner Family
DX: Z00.00 Encounter for general adult medical examination without abnormal findings (principal); Z11.59 Encounter for screening for other viral diseases; Z11.4 Encounter for screening for human immunodeficiency virus [HIV]
CPT/HCPCS: 80053; 85027; 86803; 87389

== ENCOUNTER 2023-07-05 13:46 | Outpatient (REF) | payer MEDICAID, SELFPAY ==
[2023-07-05 21:33] LABS: HCT 42.7 % (40.0-50.0); HGB 14.7 g/dL (13.5-17.5); MCH 30.6 pg (27.0-33.0); MCHC 34.4 % (32.0-36.0); MCV 89 fL (80-95); MPV 11.5 fL (8.0-11.0); Platelet Count 237 10^3/uL (130-400); RBC 4.81 10^6/uL (4.36-5.78); RDW 12.4 % (11.8-14.1); RDW-SD 40.8 fL; WBC 9.74 10^3/uL (4.4-10.8)
[2023-07-05 21:45] LABS: ALT 32 U/L (16-63); AST 19 U/L (15-37); Albumin 4.5 g/dL (3.4-5.0); Alkaline Phosphatase 76 U/L (46-116); Anion Gap 8.3 mmol/L (3-11); BUN 19 mg/dL (7-18); Bilirubin, Total 0.6 mg/dL (0.2-1.0); CO2 29.7 mmol/L (21.0-32.0); CREATININE 1.2 mg/dL (0.70-1.30); Calcium 9.9 mg/dL (8.5-10.1); Chloride 104 mmol/L (98-107); Estimated GFR 76.95 (mL/min/1.73m2); Glucose 94 mg/dL (74-106); Potassium 4.5 mmol/L (3.5-5.1); Sodium 142 mmol/L (136-145); Total Protein 7.9 g/dL (6.4-8.2)
== END 2023-07-05 13:47 | disposition home or self-care (01) ==
LOC: NCHCN 13:46
PROVIDERS: PCP Internal Medicine; Referring Provider Nurse Practitioner Family; Visit Provider Nurse Practitioner Family
DX: I10 Essential (primary) hypertension (principal)
CPT/HCPCS: 80053; 85027

== ENCOUNTER 2024-07-21 03:13 | Outpatient (CLI) | payer BC, SELFPAY ==
--- NOTE | 2024-07-21 08:52 | DI.RAD_ITS ---
Exam(s) XR CERVICAL SPINE COMP 4-5V EXAM: XR CERVICAL SPINE COMP 4-5V CLINICAL HISTORY: Pain of rt shoulder blade, M25.511. TECHNIQUE: 2D digital imaging was performed. Five images were obtained. AP, odontoid, lateral and bi lateral oblique images were obtained. COMPARISON: No exams were available for comparison FINDINGS: The odontoid is intact. The lateral masses are well aligned. There is normal alignment of the cervi mica spine. There is mild narrowing at the C5-6 and C6-C7 disc spaces. There are endplate osteophytes seen at C4-5 through C6-C7. No acute fracture or subluxation is present. There is mild neural forami nal narrowing on the right at C6-C7 and on the left at C5-C6. The cervical thoracic junction is well maintained. The prevertebral soft tissues are unremarkable. Lung apices are clear. IMPRESSION: Mild cervical spondylosis. DATA REPOSITORY: RADIATION DOSE DELIVERED:
--- NOTE | 2024-07-21 08:52 | DI.RAD_ITS ---
Exam(s) XR THORACIC SPINE COMPLETE EXAM: XR THORACIC SPINE COMPLETE CLINICAL HISTORY: Radiculopathy, thoracic region, M54.14. TECHNIQUE: 2D digital imaging was performed of the thoracic spine. Three views were obtained. AP, swimmer's and lateral views were obtained. COMPARISON: No exams were available for comparison FINDINGS: BONES: There is no fracture or destructive lesion. Endplate osteophytes are seen throughout the thora cic spine. DISKS:Alignment is within normal limits. There is disc space narrowing seen at several levels of the thoracic spine. SOFT TISSUE: Visualized lungs are clear. IMPRESSION: [id number] degenerative changes are seen in the thoracic spine. DATA REPOSITORY: RADIATION DOSE DELIVERED:
== END 2024-07-21 03:33 ==
LOC: DI 03:14
PROVIDERS: PCP Nurse Practitioner Family; Visit Provider Nurse Practitioner Family
DX: M54.14 Radiculopathy, thoracic region (principal); M47.12 Other spondylosis with myelopathy, cervical region
CPT/HCPCS: 72050; 72072

== ENCOUNTER 2025-05-12 15:24 | Outpatient (REF) | payer BC, SELFPAY ==
[2025-05-12 21:35] LABS: Abs Immature Grans 0.02 10^3/uL (0.0-0.06); HCT 40.5 % (40.0-50.0); HGB 13.6 g/dL (13.5-17.5); Immature Grans % 0.2 %; MCH 29.5 pg (27.0-33.0); MCHC 33.6 % (32.0-36.0); MCV 88 fL (80-95); MPV 10.9 fL (8.0-11.0); Platelet Count 297 10^3/uL (130-400); RBC 4.61 10^6/uL (4.36-5.78); RDW 12.6 % (11.8-14.1); RDW-SD 40.3 fL; WBC 9.62 10^3/uL (4.4-10.8)
[2025-05-12 22:00] LABS: ALT 24 U/L (10-49); AST 22 U/L (<34); Albumin 4.6 g/dL (3.2-5.0); Alkaline Phosphatase 76 U/L (46-116); Anion Gap 7.4 mmol/L (3-11); BUN 21 mg/dL (9-23); Bilirubin, Total 0.6 mg/dL (0.2-1.2); CO2 27.6 mmol/L (20.0-31.0); Calcium 9.3 mg/dL (8.3-10.6); Chloride 107 mmol/L (98-107); Cholesterol 158 mg/dL (<200); Glucose 97 mg/dL (74-106); HDL Cholesterol 38 mg/dL (>or=40); Potassium 4.1 mmol/L (3.5-5.1); Sodium 142 mmol/L (136-145); Total Protein 7.6 g/dL (5.7-8.2)
== END 2025-05-12 15:25 | disposition home or self-care (01) ==
LOC: NCHCN 15:24
PROVIDERS: PCP Nurse Practitioner Family; Visit Provider Nurse Practitioner Family
DX: Z00.00 Encounter for general adult medical examination without abnormal findings (principal); I10 Essential (primary) hypertension; E78.5 Hyperlipidemia, unspecified
CPT/HCPCS: 80053; 80061; 85025